=== PATIENT | female | born 1980 | race Caucasian/White ===

== ENCOUNTER 2023-12-25 16:42 | Emergency (ER) | payer SELFPAY ==
[2023-12-25 17:15] VITALS: BP 119/73; PULSE 78; TEMP 36.6; O2SAT 100; BMI 30.2
--- NOTE | 2023-12-25 19:19 | ED_ITS ---
HPI HPI - General Adult General Chief complaint: Skin/Abscess/Foreign Body Stated complaint: Laceration Time Seen by Provider: 12/25/23 19:15 Source: patient Mode of arrival: walk-in Limitations: no limitations History of Present Illness HPI narrative: Patient is a 43-year-old female who presents to the emergency department for a superficial laceration to the distal tip of the toe. She states she caught her toe on a rika table at home prior to arrival, she states it was about 2 hours ago bleeding is well-controlled, but she was concerned because her tetanus is not up-to-date and the table was near cat feces and she is concerned for infection. Patient has no concern for . Related Data Allergies Allergy/AdvReac Type Severity Reaction Status Date / Time No Known Drug Allergies Allergy Verified 12/25/23 17:14 Opioid HPI Opioid Management Most Recent Opioid Data: No Data to Display Review of Systems ROS Constitutional Denies: fever or chills Ears, nose, mouth, and throat Denies: throat pain or nasal congestion Respiratory Denies: shortness of breath Gastrointestinal Denies: nausea or vomiting Integumentary/Breast Denies: rash Neurological Denies: numbness in extremities or weakness in extremities Hematologic/Lymphatic Denies: easy bruising or easy bleeding PFSH PFSH Social History Little interest or pleasure in doing things: not at all Feeling down, depressed, or hopeless: not at all Exam Narrative Exam Narrative: Gen.: Awake, alert, in no distress Head: Normocephalic, atraumatic ENT: Moist mucous membranes Respiratory: No respiratory distress Extremities: Moves extremities equally, superficial 0.5 cm laceration to the distal tip of the right great toe, no toenail involvement. No deep laceration noted, no active bleeding. Psych: Normal mood and affect Neuro: No focal neuro deficit Skin: Warm, dry, intact Constitutional Vital Signs, click to edit/add: Last Vital Signs Temp 97.8 F 12/25/23 17:15 Pulse 78 12/25/23 17:15 Resp 16 12/25/23 17:15 BP 119/73 12/25/23 17:15 Pulse Ox 100 12/25/23 17:15 Course Vital Signs Vital signs: Vital Signs Temperature 97.8 F 12/25/23 17:15 Pulse Rate 78 12/25/23 17:15 Respiratory Rate 16 12/25/23 17:15 Blood Pressure 119/73 12/25/23 17:15 Pulse Oximetry 100 12/25/23 17:15 Temperature 97.8 F 12/25/23 17:15 Pulse Rate 78 12/25/23 17:15 Respiratory Rate 16 12/25/23 17:15 Blood Pressure 119/73 12/25/23 17:15 Pulse Oximetry 100 12/25/23 17:15 Medical Decision Making MDM Narrative Medical decision making narrative: Laceration is superficial, no indication for suture repair. The area was cleansed, dressed with bacitracin and a dressing, tetanus updated. Patient encouraged to use soap and water to the area with regular wound care and antibiotic ointment. Follow-up with PCP and return to the ER if symptoms change or worsen. SUPERVISED APC VISIT, PHYSICIAN ATTESTATION: Based on the medical record the care appears appropriate. ? Medical Records Medical records reviewed: Yes I reviewed the patient's medical records Discharge Plan Discharge Chief Complaint: Skin/Abscess/Foreign Body Clinical Impression: Superficial laceration of toe Patient Disposition: Home, Self-Care Time of Disposition Decision: 19:18 Condition: Good Print Language: Macedonian Instructions: Laceration (ED) Referrals: YASMINE HERNANDEZ [Primary Care Provider] - 1 week
[2023-12-25] MEDS: ADACEL DIPH,PERTUSS(ACELL),TET VAC/PF 0.5 ML ADULT SYRINGE IM (19:33)
[2023-12-25] MEDS: BACITRACIN 0.9 GM PACKET 1 PACKET TOPICAL (19:33)
== END 2023-12-25 19:53 | disposition home or self-care (01) ==
PROVIDERS: Emergency Provider Emergency Medicine
DX: S91.111A Laceration without foreign body of right great toe without damage to nail, initial encounter (principal); Z23 Encounter for immunization; W22.03XA Walked into furniture, initial encounter
CPT/HCPCS: 90471; 90715; 99284

== ENCOUNTER 2025-01-15 19:11 | Emergency (ER) | payer SELFPAY ==
--- OUTSIDE RECORDS SUMMARY | 2025-01-15 19:18 | XMS_ITS | CCD ---
Author Organization [facility] Care Team Providers Care Systems Qa Analyst Name Role Phone RubenMarely michelle Unavailable REQUEST, NONE LISTED Primary Care Unavaila IAN Alexander Admitting Unavailable SUNNY, IAN Attending Unavailable IAN CORREA Consulting Unavailable KERRY VALLES Consulting Unavailable TERESITA, DR AGUSTIN Admitting Unavailable KARASIK, DR AGUSTIN Attending Unavailable REQUEST, NONE LISTED Primary Care Unavaila ble TERESITA, DR AGUSTIN Consulting Unavailable JESUS ALBERTO, DR LEX Mccullough Consulting Unavailable Mary, Yasmine Unavailable ISACC ANDERSON Attending Unavailable MARY, YASMINE N Referring Unavailable MARY, YASMINE N Primary Care Unavailable ISACC ANDERSON Attending Unavailable MARY, YASMINE N Referring Unavailable MARY, YASMINE N Primary Care Unavailable Unavailable Primary Care Provider Unavailabl e Mary DO, Yasmine N Primary Care Provider Mary DO, Yasmine N Primary Care Provider [phone] LEONEL TALBOT Referring Unavailable LEONEL TALBOT Attending Unavailable Mary DO, Yasmine N Primary Care Provider ISACC ANDERSON Attending Unavailable MARY, YASMINE N Referring Unavailable MARY, YASMINE N Primary Care Unavailable ISACC ANDERSON Referring Unavailable MARY, YASMINE N Primary Care Unavailable HARI KULKARNI Attending Un available MARY, YASMINE N Referring Unavailable MARY, YASMINE N Primary Care Unavailable HARI KULKARNI Referring Un available MARY, YASMINE N Primary Care Unavailable Mary DO, Yasmine N Primary Care Provider [phone] Julieth Hughes APRN Attending Provider [phone] Franki Cuadra APRN Attending Provider Medications Current Medications Medication Drug Class(es) Dates Sig (Normalized) Sig (Original) estradiol 1 mg oral tablet (14 sources) Estrogen Start: 11-30-2024 End: 02-28-2025 take 1 tablet by mouth once daily estradiol (Estrace) 1 MG tablet Indications: Hot flashes Take 1 tablet (1 mg) by mouth Daily 15 tablet 1 11/30/2024 02/28/2025 Active Start: 10-28-2023 End: 11-30-2024 take 0.5 tablet by mouth in the morning estradioL (ESTRACE) 1 mg tablet Take 0.5 tablets (0.5 mg total) by mouth in the morning. 10/28/2023 Active levothyroxine sodium 0.15 mg oral capsule (20 sources) l-Thyroxine Start: 01-06-2025 take 1 capsule by mouth once daily Levothyroxine 150 mcg capsule Active 150 MCG PO Daily January 06, 2025 12:00am Complies with drug therapy Start: 05-19-2024 take 1 capsule by mo ut in the morning TIROSINT 150 mcg capsule Indications: Acquired hypothyroidism Take 1 capsule (150 mcg total) by mouth in the morning. 90 capsule 3 05/19/2024 Active Start: 08-14-2022 End: 05-19-2024 take 1 capsule by mouth in the morning TIROSINT 175 mcg capsule Indications: Acquired hypothyroidism Take 175 mcg by mouth in the morning. 90 capsule 3 11/14/2023 Active take 1 capsule by mo uth once daily in the morning Tirosint 175 MCG 1 capsule in the morning on an empty stomach Orally Once a day Active Tirosint Active methylPREDNISolone 4 mg oral tablet (2 sources) Corticosteroid Start: 01-07-2025 Methylprednisolone 4 mg tablets,dose pack Active 0 PO per package directions January 07, 2025 12:00am PO PER PKG DIR for 6 days Complies with drug therapy naproxen sodium 220 mg oral tablet (1 source) Nonsteroidal Anti-inflammatory Drug take 2 tablets by mouth every twelve hours at mealtime as needed Aleve 220 MG 2 tablet with food or milk as needed Orally every 12 hrs Active 24 hr phentermine 7.5 mg / topiramate 46 mg extended release oral capsule (20 sources) Sympathomimetic Amine Anorectic Start: 01-06-2025 take 1 capsule by mouth once daily Phentermine-Topiramat e (Qsymia) 7.5-46 mg capsule, ER multiphase 24 hr Active 1 CAP PO Daily January 06, 2025 12:00am Complies with drug therapy Start: 01-01-2025 take 1 capsule by mo uth once daily in the morning phentermine-topiramate (QSYMIA) 15-92 mg capsule, ER multiphase 24 hr Indications: Abnormal weight gain TAKE 1 CAPSULE BY MOUTH EVERY MORNING 30 capsule 2 01/01/2025 Active Start: 12-12-2022 End: 01-01-2025 take 1 capsule by mouth every twenty-four hours in the morning phentermine-topiramate (QSYMIA) 15-92 mg capsule, ER multiphase 24 hr Indications: Abnormal weight gain Take 1 capsule by mouth in the morning. 30 capsule 5 05/19/2024 01/01/2025 Discontinued predniSONE 10 mg oral tablet (1 source) Start: 10-20-2022 prednisone 10 mg 5 tablets for 2 days, 4 tablets x2 days, then 3 x2 days, 2 x2 days, 1 x2 days Orally as directed for 10 days Oct, Active valACYclovir 1000 mg oral tablet (1 source) Herpesvirus Nucleoside Analog DNA Polymerase Inhibitor, Herpes Simplex Virus Nucleoside Analog DNA Polymerase Inhibitor, Herpes Zoster Virus Nucleoside Analog DNA Polymerase Inhibitor take 1 tablet by mouth every twelve hours Valtrex 1 GM 1 tablet Orally twice a day for 7 days Active vit B complex 100 no.2/herbs (VITAMIN B COMPLEX 100 2-HERBS ORAL) (8 sources) vit B complex 10 0 no.2/herbs (VITAMIN B COMPLEX 100 2-HERBS ORAL) Active vit B complex 10 0 no.2/herbs (VITAMIN B COMPLEX 100 2-HERBS ORAL) vit c-ascorbate Ca-ascorb so d (VITAMIN C) 500 mg/15 mL liquid (8 sources) vit c-ascorbate Ca-ascorb sod (VITAMIN C) 500 mg/15 mL liquid Active vit c-ascorbate Ca-ascorb sod (VITAMIN C) 500 mg/15 mL liquid Completed/Discontinued Medications Medication Drug Class(es) Dates Sig (Normalized) Sig (Original) triamcinolone acetonide 40 mg/ml injectable suspension (3 sources) Corticosteroid Start: 10-20-2022 Kenalog-40 Oct, 60 mg Problems Active Problems Problem Classification Problem Date Documented Da te Episodic/Chronic Abdominal pain (2 sources) Left lower quadrant pain; Translations: [Left lower quadrant pain] Episodic Cardiac dysrhythmias (4 sources) Palpitations; Translations: [Palpitations] 01-06-2025 Episodic Chronic obstructive pulmonary disease and bronchiectasis (1 source) Bronchitis; Translations: [Bronchitis, not specified as acute or chronic] 01-07-2025 Episodic Complications of surgical procedures or medical care (12 sources) Postprocedural hypothyroidism; Translations: [Postoperative hypothyroidism] Onset: 06-21-2022 05-12-2024 Chronic Other connective tissue disease (5 sources) H/O: musculoskeletal disease; Translations: [Personal history of other diseases of the musculoskeletal system and connective tissue] 01-06-2025 Episodic Other connective tissue disease (1 source) Personal history of other diseases of the musculoskeletal system and connective tissue Episodic Other gastrointestinal disorders (2 sources) Constipation alternates with diarrhea; Translations: [Other specified symptoms and signs involving the digestive system and abdomen] Episodic Other lower respiratory disease (4 sources) Dyspnea; Translations: [Shortness of breath] 01-06-2025 Episodic Other lower respiratory disease (4 sources) Cough; Translations: [Cough] 01-06-2025 Episodic Other nutritional; endocrine; and metabolic disorders (2 sources) Body mass index 30+ - obesity; Translations: [Body mass index (BMI) 30.0-30.9, adult] Chronic Other nutritional; endocrine; and metabolic disorders (14 sources) Abnormal weight gain; Translations: [Abnormal weight gain] Onset: 06-21-2022 05-19-2024 Episodic Other upper respiratory infections (2 sources) Acute upper respiratory infection, unspecified; Translations: [Acute pharyngitis, unspecified] Onset: 03-20-2022 Episodic Residual codes; unclassified (1 source) Acquired absence of both cervix and uterus; Translations: [ACQUIRED ABSENCE BOTH CERVIX AND UTERUS] Onset: 03-20-2022 Episodic Residual codes; unclassified (2 sources) Flushing; Translations: [Flushing] 11-30-2024 Episodic Screening and history of mental health and substance abuse codes (1 source) Personal history of nicotine dependence; Translations: [PERSONAL HISTORY OF NICOTINE DEPEND] Onset: 03-20-2022 Episodic Thyroid disorders (20 sources) Hypothyroidism, unspecified; Translations: [Acquired hypothyroidism] Onset: 03-20-2022 Chronic Unclassified (3 sources) COUGH, UNSPECIFIED; Translations: [COUGH, UNSPECIFIED] Onset: 03-20-2022 Unclassified (1 source) CONTACT W/AND (SUSP) EXPOS COVID-19; Translations: [CONTACT W/AND (SUSP) EXPOS COVID-19] Onset: 03-20-2022 Unclassified (2 sources) Thyroid Problem Onset: 05-16-2023 Viral infection (1 source) Zoster without complications Episodic Past or Other Problems Problem Classification Problem Date Documented Da te Episodic/Chronic Other nutritional; endocrine; and metabolic disorders (2 sources) Abnormal weight gain; Translations: [Abnormal weight gain] Onset: 06-21-2022 Episodic Other screening for suspected conditions (not mental disorders or infectious disease) (4 sources) Encounter for screening mammogram for malignant neoplasm of breast; Translations: [ENC SCR MAMMO MALIG NEOPLASM BREAST] Onset: 06-19-2021 Episodic Residual codes; unclassified (1 source) Family history of malignant neoplasm of digestive organs; Translations: [FAM HX MALIG NEOPLASM DIGESTIV ORGN] Onset: 06-20-2021 Episodic Unclassified (1 source) COUGH, UNSPECIFIED; Translations: [COUGH, UNSPECIFIED] Onset: 03-16-2022 Results Test Name Value Interpretation Reference Range Facility THYROID PROFILE INCLUDES TSH FT4on 12-01-2024 Free T4 [Mass/Vol] 0.70 ng/dL Normal 0.61-1.60 [facility] Comment on above: Performed By: #### T HYR #### [facility] ([facility]) [address] [place] [address] VIR TSH 4.80 uIU/mL High 0.49-4.67 [facility] Comment on above: Performed By: #### T HYR #### [facility] ([facility]) [address] [place] [address] VIR Thyroid profile includes TSH FT4on 12-01-2024 Free T4 [Mass/Vol] 0.7 ng/dL 0.61 - 1. 60 ng/dL [facility] Interpretation and review of laboratory results Abnormal [facility] TSH Qn 4.8 m[IU]/L High [facility] BI MAMMOGRAM SCREENING TOMOS YNTHESIS BILATERALon 10-29-2024 BI MAMMOGRAM SCREENING TOMOSYNTHESIS BILATERAL This is a summary report. The complete report is available in the patient's medical record. If you cannot access the medical record, please contact the sending organization for a detailed fax or copy. Examination: BI MAMMOGRAM SCREENING TOMOSYNTHESIS BILATERAL Clinical History: screening Technique: Screening digital mammography study of both breasts was performed with 2-D and 3-D tomosynthesis imaging. Study was compared to the prior exam dated 07/10/2023. Findings: There is no evidence of interval dominant spiculated mass, grouped microcalcifications, or skin thickening which would be suggestive of malignancy. A single benign-appearing calcification is seen on the left. IMPRESSION: Impression: No specific evidence of malignancy seen in either breast. BIRADS 2 - Benign Findings DENSITY: There are scattered areas of fibroglandular density. FOLLOW-UP: Routine Screening Mammogram ELECTRONICALLY SIGNED BY: Zachary Mayfield M.D. Normal Not Available THYROID PROFILEon 05-19-2024 Free T4 [Mass/Vol] 1.30 ng/dL Normal 0.61-1.60 [facility] Comment on above: Performed By: #### T HYR #### [facility] ([id number]) [address] [place] [address] TSH 0.09 uIU/mL Low 0.49-4.67 [facility] Comment on above: Performed By: #### T HYR #### [facility] ([id number]) [address] [place] [address] Free T3 [Mass/Vol]on 024 [facility] T3, freeon 05-16-2023 Free T3 [Mass/Vol] 3.28 pg/mL 2.50 - 3. 90 pg/mL [facility] Thyroid profile includes TSH FT4on 05-16-2023 Free T4 [Mass/Vol] 1.12 ng/dL 0.61 - 1. 60 ng/dL [facility] Interpretation and review of laboratory results Abnormal [facility] TSH Qn 0.40 m[IU]/L Low [facility] Quick Strepon 04-22-2023 S. pyogenes Org specific cx Ql (Throat) Negative [facility] Other Quick Strep [facility] Other Covid-19 PCR ([facility])on SARS-CoV-2 (COVID-19) RNA MEKHI+probe Ql (Unsp spec) Not detected Normal NOT DETECTED [facility] Comment on above: Result Comment: When diagnostic testing is negative, the possibility of a false negative should be considered in the context of a patient's recent exposures and the presence of clinical signs and symptoms consistent with SARS-CoV-2. This test is not yet approved or cleared by the [place] FDA. When there are no FDA-approved or cleared tests available, and other criteria are met, FDA can make tests available under an emergency access mechanism called an Emergency Use Authorization (EUA). The EUA for this test is supported by the Matching Machine Operator of Health and Human Service's declaration that circumstances exist to justify the emergency use of in vitro diagnostics for the detection and/or diagnosis of the virus that causes COVID-19. This EUA will remain in effect for the duration of the COVID-19 declaration justifying emergency of IVDs, unless it is terminated or revoked by the FDA (after which the test may no longer be used). Performed By: #### C VDTBH #### [facility] [address] [place] [address] Dr. Owen Sanchez INFLUENZA A AND B AGon 03-16 [facility] SEE BELOW Normal [facility] Comment on above: Result Comment: Nega tive for Flu A protein angiten. Infection due to Flu A cannot be ruled out. Flu A angiten in the sample may be below the detection limit of the test. Performed By: #### I NFLUAB #### [facility] [address] [place] [address] Dr. [facility] SEE BELOW Normal [facility] Comment on above: Result Comment: Nega tive for Flu B protein antigen. Infection due to Flu B cannot be ruled out. Flu B antigen in the sample may be below the detection limit of the test. Performed By: #### I NFLUAB #### [facility] [address] [address] [address] Owen Sanchez INFLUENZA A AG Negative Normal NEGATIVE SEE COMMENT [facility] Comment on above: Performed By: #### I NFLUAB #### [facility] [address] [address] [address] Owen Sanchez INFLUENZA B AG Negative Normal NEGATIVE SEE COMMENT [facility] Comment on above: Performed By: #### I NFLUAB #### [facility] [address] [address] [address] Owen Sanchez INTERNAL CONTROLS Within Normal Limits Normal Wi thin Normal Limits [facility] Comment on above: Performed By: #### I NFLUAB #### [facility] [address] [place] [address] Dr. Owen Sanchez XR CHEST 2 Von 03-16-2022 XR CHEST 2 V EXAM: XR CHEST 2 V 03/16/2022 12:24 AM EST [facility]001 CLINICAL STATEMENT: COUGH COMPARISON: 04/05/2012 TECHNIQUE: Single AP radiograph of the chest is submitted. FINDINGS: There is no acute airspace disease. The cardiac silhouette is normal. The costophrenic recesses are sharp. No pneumothorax. The bony elements are unremarkable. IMPRESSION: No acute cardiopulmonary process. FOLLOW-UP: Follow-up as clinically indicated. Electronically authenticated by: KERRY SAID Date: 2022-03-16 01:02 Normal [facility] MAMM SCREEN 3D KELTON CADon 06-19-2021 MG MAMM SCREEN 3D KELTON CAD Patient: BROOKE ALTMAN Exam Date: 06/19/2021 : 1980 Gender:F Ordering : DR NIKOLE MANCILLA . Admission #: [id number] Family : [facility] Order #: [id number] CLICK HERE TO VIEW EXAM RADIOLOGY REPORT PROCEDURE: MAMMOGRAM SCREENING 3D BILATERAL CAD COMPARISON: None. INDICATIONS: Screening mammography Calculator Name NCI Breast Cancer Risk Assessment Tool 5 Year Breast Cancer Risk 0.60% Lifetime Breast Cancer Risk 9.80% Personal Breast Cancer No Personal Ovarian Cancer No Treatments None Family Cancers Aunt-paternal with colon cancer at age 47. LOCATION: [facility] BREAST COMPOSITION: Heterogeneously dense,which may obscure small masses. FINDINGS: DIAGNOSTIC CATEGORY 1--NEGATIVE. Scattered benign-appearing lymph nodes are present. RIGHT BREAST: No significant suspicious finding. LEFT BREAST: No significant suspicious finding. RECOMMENDATIONS: ROUTINE MAMMOGRAM AND CLINICAL EVALUATION IN 12 MONTHS. PLEASE NOTE: A NORMAL MAMMOGRAM DOES NOT EXCLUDE THE POSSIBILITY OF BREAST CANCER. A CLINICALLY SUSPICIOUS PALPABLE LUMP SHOULD BE BIOPSIED. Dictated by: Lex Morrison MD on 06/19/2021 at 07:54 Approved by: Lex Morrison MD on 06/19/2021 at 07:56 Normal [facility] FT4on 04-28-2020 Free T4 [Mass/Vol] 2.07 ng/dL High 0.64-1.79 [facility] Comment on above: Performed By: #### 4 685, 4500 #### [facility] Unless Otherwise Noted [address] [place] [address] / COLA #4724/CLIA # [id number] TSHon 04-28-2020 TSH Qn 0.04 uIU/ml Low 0.47-4.68 [facility] Comment on above: Performed By: #### 4 520, 4500 #### [facility] Unless Otherwise Noted [address] [place] [id number] / COLA #4724/CLIA # [id number] FT4on 02-25-2020 Free T4 [Mass/Vol] 0.95 ng/dL Normal 0.64-1.79 [facility] Comment on above: Performed By: #### 4 500, 4520 #### [facility] Unless Otherwise Noted [address] [place] [address] / COLA #4724/CLIA # [id number] TSHon 02-25-2020 TSH Qn 14.50 uIU/ml High 0.47-4.68 [facility] Comment on above: Performed By: #### 0 385, 1771 #### [facility] Unless Otherwise Noted [address] [place] [address] / KELSIE #4724/CLIA # [id number] Vital Signs Date Time Vital Sign Value Performing Clinician Facility 01-07-2025 09:20-0400 Body height 154.94 cm Yasmine Ferguson DO Work Phone: [facility] 01-07-2025 09:20-0400 Body mass index (BMI) [Ratio] 33 kg/m2 Yasmine Ferguson DO Work Phone: [facility] 01-07-2025 09:20-0400 Body temperature 97.5 [degF] Yasmine Mary DO Work Phone: [facility] 01-07-2025 09:20-0400 Body weight 79.37 kg Yasmine Ferguson DO Work Phone: [facility] 01-07-2025 09:20-0400 Diastolic blood pressure 92 mm[Hg] Yasmine Ferguson DO Work Phone: [facility] 01-07-2025 09:20-0400 Heart rate 80 /min Yasmine Mary DO Work Phone: [facility] 01-07-2025 09:20-0400 Respiratory rate 18 /min Yasmine Ferguson DO Work Phone: [facility] 01-07-2025 09:20-0400 SaO2% (BldA) [Mass fraction] 98 % Yasmine Ferguson DO Work Phone: [facility] 01-07-2025 09:20-0400 Systolic blood pressure 140 mm[Hg] Yasmine Ferguson DO Work Phone: [facility] 01-06-2025 17:22-0400 Body height 154.94 cm Yasmine Ferguson DO Work Phone: [facility] 01-06-2025 17:22-0400 Body mass index (BMI) [Ratio] 32.5 kg/m2 Yasmine Ferguson DO Work Phone: [facility] 01-06-2025 17:22-0400 Body temperature 98.9 [degF] Yasmine Ferguson DO Work Phone: [facility] 01-06-2025 17:22-0400 Body weight 78.01 kg Yasmine Ferguson DO Work Phone: [facility] 01-06-2025 17:22-0400 Diastolic blood pressure 69 mm[Hg] Yasmine Ferguson DO Work Phone: [facility] 01-06-2025 17:22-0400 Heart rate 89 /min Yasmine Ferguson DO Work Phone: [facility] 01-06-2025 17:22-0400 Respiratory rate 18 /min Yasmine Ferguson DO Work Phone: [facility] 01-06-2025 17:22-0400 SaO2% (BldA) [Mass fraction] 99 % Yasmine Ferguson DO Work Phone: [facility] 01-06-2025 17:22-0400 Systolic blood pressure 119 mm[Hg] Yasmine Ferguson DO Work Phone: [facility] 12-01-2024 15:03-0400 Body height 152.4 cm [facility]ari Mejia MD [facility] 12-01-2024 15:03-0400 Body mass index (BMI) [Ratio] 33.61 kg/m2 Hari Mejia MD Work Phone: [facility] 12-01-2024 15:03-0400 Body weight 78.06 kg Hari Mejia MD Work Phone: [facility] 12-01-2024 15:03-0400 Diastolic blood pressure 81 mm[Hg] Hari Mejia MD Work Phone: [facility] 12-01-2024 15:03-0400 Heart rate 79 /min Hari Mejia MD Work Phone: [facility] 12-01-2024 15:03-0400 Systolic blood pressure 115 mm[Hg] Hari Mejia MD Work Phone: [facility] 11-30-2024 14:07-0400 Body mass index (BMI) [Ratio] 33.07 kg/m2 Leonel Talbot CNM Work Phone: [facility] 11-30-2024 14:07-0400 Body weight 79.38 kg Leonel Talbot CNM Work Phone: [facility] 11-30-2024 14:07-0400 Diastolic blood pressure 80 mm[Hg] Leonel Rickettso CNM Work Phone: [facility] 11-30-2024 14:07-0400 Systolic blood pressure 120 mm[Hg] Leonel Rickettso CNM Work Phone: [facility] 05-19-2024 10:06-0500 Body height 152.4 cm Isacc Anderson PUBLICATION DESIGNER-FIXED INTEREST DEALER Work Phone: [facility] 05-19-2024 10:06-0500 Body mass index (BMI) [Ratio] 33.01 kg/m2 Isacc Anderson PUBLICATION DESIGNER-FIXED INTEREST DEALER Work Phone: [facility] 05-19-2024 10:06-0500 Body weight 76.66 kg Isacc Anderson PUBLICATION DESIGNER-FIXED INTEREST DEALER Work Phone: [facility] 05-19-2024 10:06-0500 Diastolic blood pressure 79 mm[Hg] Isacc Anderson PUBLICATION DESIGNER-FIXED INTEREST DEALER Work Phone: [facility] 05-19-2024 10:06-0500 Heart rate 84 /min Isacc Anderson PUBLICATION DESIGNER-FIXED INTEREST DEALER Work Phone: [facility] [employer] [facility] 05-19-2024 10:06-0500 Respiratory rate 16 /min Isacc Anderson PUBLICATION DESIGNER-FIXED INTEREST DEALER Work Phone: [facility] [employer] [facility] 05-19-2024 10:06-0500 Systolic blood pressure 131 mm[Hg] Isacc Anderson PUBLICATION DESIGNER-FIXED INTEREST DEALER Work Phone: [facility] 11-14-2023 10:05-0400 Body mass index (BMI) [Ratio] 33.3 kg/m2 Isacc Anderson PUBLICATION DESIGNER-FIXED INTEREST DEALER Work Phone: [facility] 11-14-2023 10:05-0400 Body weight 77.34 kg Isacc Anderson PUBLICATION DESIGNER-FIXED INTEREST DEALER Work Phone: [facility] [employer] [facility] 11-14-2023 10:05-0400 Diastolic blood pressure 71 mm[Hg] Isacc Anderson PUBLICATION DESIGNER-FIXED INTEREST DEALER Work Phone: [facility] [employer] [facility] 11-14-2023 10:05-0400 Heart rate 83 /min Isacc Anderson PUBLICATION DESIGNER-FIXED INTEREST DEALER Work Phone: [facility] [employer] [facility] 11-14-2023 10:05-0400 Systolic blood pressure 107 mm[Hg] Isacc Anderson PUBLICATION DESIGNER-FIXED INTEREST DEALER Work Phone: [facility] [employer] [facility] 05-16-2023 08:09-0500 Body mass index (BMI) [Ratio] 33.79 kg/m2 Isacc Anderson PUBLICATION DESIGNER-FIXED INTEREST DEALER Work Phone: [facility] [employer] [facility] 05-16-2023 08:09-0500 Body weight 78.47 kg Isacc Anderson PUBLICATION DESIGNER-FIXED INTEREST DEALER Work Phone: [facility] 05-16-2023 08:09-0500 Diastolic blood pressure 73 mm[Hg] Isacc Anderson PUBLICATION DESIGNER-FIXED INTEREST DEALER Work Phone: [facility] 05-16-2023 08:09-0500 Heart rate 82 /min Isacc Anderson PUBLICATION DESIGNER-FIXED INTEREST DEALER Work Phone: [employer] 05-16-2023 08:09-0500 Systolic blood pressure 114 mm[Hg] Isacc Anderson PUBLICATION DESIGNER-FIXED INTEREST DEALER Work Phone: [employer] 04-22-2023 08:30-0500 Body height 154.94 cm Yasmine Ferguson Other [facility] Other 04-22-2023 08:30-0500 Body mass index (BMI) [Ratio] 30.23 kg/m2 Yasmine Ferguson Other [facility] Other 04-22-2023 08:30-0500 Body temperature 98.3 [degF] Yasmine Ferguson Other [facility] Other 04-22-2023 08:30-0500 Body weight 72.58 kg Yasmine Ferguson Other [facility] Other 04-22-2023 08:30-0500 Diastolic blood pressure 68 mm[Hg] Yasmine Ferguson Other [facility] Other 04-22-2023 08:30-0500 Respiratory rate 16 /min Yasmine Ferguson Other [facility] Other 04-22-2023 08:30-0500 SaO2% (BldA) [Mass fraction] 99 % Yasmine Ferguson Other [facility] Other 04-22-2023 08:30-0500 Systolic blood pressure 108 mm[Hg] Yasmine Ferguson Other [facility] Other 02-07-2023 13:00-0400 Body height 154.94 cm Yasmine Ferguson Other [facility] Other 02-07-2023 13:00-0400 Body mass index (BMI) [Ratio] 31.55 kg/m2 Yasmine Ferguson Other [facility] Other 02-07-2023 13:00-0400 Body temperature 98 [degF] Yasmine Ferguson Other [facility] Other 02-07-2023 13:00-0400 Body weight 75.75 kg Yasmine Mary Other [facility] Other 02-07-2023 13:00-0400 Diastolic blood pressure 68 mm[Hg] Yasmine Ferguson Other [facility] Other 02-07-2023 13:00-0400 SaO2% (BldA) [Mass fraction] 99 % Yasmine Mary Other [facility] Other 02-07-2023 13:00-0400 Systolic blood pressure 106 mm[Hg] Yasmine Ferguson Other [facility] Other 01-22-2022 12:20-0400 Body height 154.94 cm Marely Ruben Other [facility] Other 01-22-2022 12:20-0400 Body mass index (BMI) [Ratio] 30.61 kg/m2 Marely Ruben Other [facility] Other 01-22-2022 12:20-0400 Body temperature 96.2 [degF] Marely Miranda Other [facility] Other 01-22-2022 12:20-0400 Body weight 73.48 kg Marely Miranda Other [facility] Other 01-22-2022 12:20-0400 Diastolic blood pressure 67 mm[Hg] Marely Miranda Other [facility] Other 01-22-2022 12:20-0400 Respiratory rate 16 /min Marely Miranda Other [facility] Other 01-22-2022 12:20-0400 Systolic blood pressure 115 mm[Hg] Marely Miranda Other [facility] Other Encounters Encounter Date Encounter Type Care Provider Facility Start: 01-07-2025 End: 01-07-2025 ambulatory Yasmine Ferguson DO Work Phone: [facility] Work Phone: Start: 01-07-2025 End: 01-07-2025 Patient encounter procedure Franki Cuadra PUBLICATION DESIGNER -[facility] [place] Work Phone: Start: 01-06-2025 End: 01-06-2025 ambulatory Yasmine Ferguson DO Work Phone: [facility] Work Phone: Start: 01-06-2025 End: 01-06-2025 Patient encounter procedure Julieth Borrero PUBLICATION DESIGNER -[facility] [place] Work Phone: Start: 01-01-2025 End: 01-01-2025 Nimco Anderson PUBLICATION DESIGNER-[facility] Work Phone: [facility] Adult Endocrinology, A Department of [facility] Comment on above: Abnormal weight gain Start: 12-01-2024 End: 12-01-2024 ambulatory HARI MEJIA [facility] Start: 12-01-2024 End: 12-01-2024 Office outpatient visit 25 minutes Hari Mejia MD Work Phone: [facility], A Department of [facility] Comment on above: Acquired hypothyroid ism (Primary Dx) Start: 11-30-2024 End: 11-30-2024 Bamboo flowsheet Leonel L Floro CNM Work Phone: [facility] Start: 11-30-2024 End: 11-30-2024 Bamboo flowsheet Leonel L Floro CNM Work Phone: [facility] Start: 11-30-2024 End: 11-30-2024 Gynecological examination normal Leonel L Floro CNM Work Phone: [facility] Start: 11-30-2024 End: 11-30-2024 Periodic preventive med est patient 40-64yrs Leonel L Floro CNM Work Phone: [facility] Comment on above: Normal gynecologic e xamination; Hot flashes Start: 11-30-2024 End: 11-30-2024 ambulatory LEONEL L FLORO Not Available Start: 10-29-2024 End: 10-29-2024 ambulatory LEONEL L FLORO Not Available Start: 10-26-2024 End: 10-26-2024 Telephone encounter Leonel L Liliamo CNM Work Phone: [facility] Start: 05-19-2024 End: 05-19-2024 Office outpatient visit 15 minutes Isacc Anderson PUBLICATION DESIGNER-[employer] Work Phone: [facility] Adult [facility], A Department of [facility] Comment on above: Postsurgical hypothy roidism (Primary Dx); Abnormal weight gain Start: 05-19-2024 End: 05-19-2024 Orders Only Isacc Anderson PUBLICATION DESIGNER-[employer] Work Phone: [facility] Adult [facility], A Department of [facility] Comment on above: Acquired hypothyroid ism Start: 03-27-2024 End: 03-27-2024 Telephone encounter Leonel Talbot CNM Work Phone: [facility] Start: 12-12-2023 End: 12-12-2023 Refill Isacc Anderson PUBLICATION DESIGNER-[employer] INTER[employer] DEAL[employer] Work Phone: [facility] Comment on above: Abnormal weight gain Start: 11-14-2023 End: 11-14-2023 Office outpatient visit 25 minutes Isacc Anderson PUBLICATION DESIGNER-[employer] Work Phone: [facility] Comment on above: Postsurgical hypothy roidism (Primary Dx); Abnormal weight gain Start: 11-14-2023 End: 11-14-2023 ambulatory ISACC Martinez [facility] Comment on above: Acquired hypothyroid ism Start: 05-16-2023 End: 05-16-2023 ambulatory ISCAC ANDERSON [facility] Start: 05-16-2023 End: 05-16-2023 Office outpatient visit 15 minutes Isacc Anderson PUBLICATION DESIGNER-[employer] INTEREST DEALER Work Phone: [facility] Comment on above: Acquired hypothyroid ism (Primary Dx); Abnormal weight gain Start: 04-22-2023 End: 04-22-2023 ambulatory Yasmine Ferguson Other [facility] Other Start: 04-22-2023 Office outpatient vi sit 15 minutes Yasmine Ferguson [facility] Start: 02-07-2023 End: 02-07-2023 ambulatory Yasmine Ferguson Other [facility] Other Start: 02-07-2023 Encounter for genera l adult medical examination without abnormal findings Yasmine Ferguson [facility] [place] Start: 02-07-2023 Periodic preventive med est patient 40-64yrs Yasmine Ferguson [facility] [place] Start: 01-24-2023 End: 01-24-2023 ambulatory Yasmine Ferguson Other [facility] Other Start: 01-24-2023 Telephone encounter Yasmine Mary [facility] Start: 03-16-2022 End: 03-16-2022 ambulatory NONE LISTED REQUEST Facility:[facility] Start: 01-22-2022 End: 01-22-2022 ambulatory Marely Miranda Other [facility] Other Start: 01-22-2022 Office outpatient vi sit 25 minutes Marely Miranda [facility] [place] Start: 06-19-2021 End: 06-20-[address] NIKOLE MANCILLA Facility: Plan of Treatment Date Care Activity Detail Author Start: 12-24-2033 DTaP,Tdap and Td Vaccines (2 - Td or Tdap) DTaP,Tdap and Td Vaccines (2 - Td or Tdap) [facility] Start: 12-01-2025 Adult BMI Screening Adult BMI Screening [facility] Start: 12-01-2025 Tobacco Screening Tobacco Screening [facility] Start: 06-03-2025 End: 06-03-2025 Patient encounter procedure 06/03/2025 1:15 PM EST Office Visit [facility], A Department of [facility] [address] [facility] [address] [place] [address] Hari Kulkarni MD [address] [place] [address] [facility], A Department of [facility] Start: 05-20-2025 End: 12-01-2025 Thyroid profile includes TSH FT4 Thyroid profile includes TSH FT4 Lab Routine Acquired hypothyroidism Expected: 05/20/2025 (Approximate), Expires: 12/01/2025 [facility] Work Phone: Comment on above: Expected: 05/20/2025 (Approximate), Expi res: 12/01/2025 Start: 05-19-2025 Adult BMI Screening Adult BMI Screening [facility] Start: 05-19-2025 Tobacco Screening Tobacco Screening [facility] Start: 12-07-2024 Influenza vaccination Influenza Vaccine [facility] Start: 11-30-2024 End: 11-30-2024 Patient encounter procedure 11/30/2024 2:00 PM EDT Office Visit [facility] [address] [place] [id number] Leonel Talbot CNM [address] [place], [place] [id number] [facility] Start: 11-17-2024 End: 11-17-2024 Patient encounter procedure 11/17/2024 10:00 AM EDT Office Visit [facility], A Department of [facility] [address] [place] [phone] Hari Kulkarni MD [address] [place] [address] [facility], A Department of [facility] Start: 11-13-2024 Adult BMI Screening Adult BMI Screening [facility] Start: 11-13-2024 Tobacco Screening Tobacco Screening [facility] Start: 07-07-2024 End: 05-19-2025 Thyroid profile includes TSH FT4 Thyroid profile includes TSH FT4 Lab Routine Acquired hypothyroidism Expected: 07/07/2024 (Approximate), Expires: 05/19/2025 [facility] Work Phone: Comment on above: Expected: 07/07/2024 (Approximate), Expi res: 05/19/2025 Start: 05-19-2024 End: 05-19-2024 Patient encounter procedure 05/19/2024 10:00 AM EST Office Visit [facility] [address] [place] [phone] Isacc Anderson, PUBLICATION DESIGNER-FIXED INTEREST DEALER [address] [place] [address] [facility] Start: 05-16-2024 Adult BMI Screening Adult BMI Screening [facility] Start: 05-16-2024 Tobacco Screening Tobacco Screening [facility] Start: 05-09-2024 End: 11-13-2024 Thyroid profile includes TSH FT4 Thyroid profile includes TSH FT4 Lab Routine Postsurgical hypothyroidism Expected: 05/09/2024 (Approximate), Expires: 11/13/2024 [facility] Comment on above: Expected: 05/09/2024 (Approximate), Expi res: 11/13/2024 Start: 12-08-2023 Influenza vaccination Influenza Vaccine [facility] Start: 11-14-2023 End: 11-14-2023 Patient encounter procedure 11/14/2023 10:00 AM EDT Office Visit [facility] [address] [facility] [address] [place] [phone] Isacc Anderson, PUBLICATION DESIGNER-FIXED INTEREST DEALER [address] [facility] [address] [place] [address] [facility] Start: 11-07-2023 End: 05-16-2024 Thyroid profile includes TSH FT4 Thyroid profile includes TSH FT4 Lab Routine Acquired hypothyroidism Expected: 11/07/2023 (Approximate), Expires: 05/16/2024 [facility] Comment on above: Expected: 11/07/2023 (Approximate), Expi res: 05/16/2024 Start: 11-07-2023 End: 05-16-2024 Triiodothyronine (T3) Free [Mass/volume] in Serum or Plasma T3, free Lab Routine Acquired hypothyroidism Expected: 11/07/2023 (Approximate), Expires: 05/16/2024 [facility] Work Phone: Comment on above: Expected: 11/07/2023 (Approximate), Expi res: 05/16/2024 Start: 12-07-2022 Influenza vaccination Influenza Vaccine [facility] Start: 07-11-2000 Screening for malignant neoplasm of cervix Pap Smear [facility] Start: 07-11-1998 DTaP,Tdap and Td Vaccines (1 - Tdap) DTaP,Tdap and Td Vaccines (1 - Tdap) [employer] Start: 07-11-1997 Adult BMI Follow Up Plan Adult BMI Follow Up Plan [employer] Start: 1991 [facility] 2000 panel - Serum or Plasma [facility] End: 05-19-2025 Thyroid profile includes TSH FT4 Thyroid profile includes TSH FT4 Lab Routine Postsurgical hypothyroidism 1 Occurrences starting 05/19/2024 until 05/19/2025 [employer] Work Phone: Comment on above: 1 Occurrences starting 05/19/2024 until 05/19/2025 Thyroid profile incl udes TSH FT4 Thyroid profile includes TSH FT4 Lab Routine Postsurgical hypothyroidism 05/19/2024 10:36 AM EST [employer] End: 11-13-2024 Thyroid profile includes TSH FT4 Thyroid profile includes TSH FT4 Lab Routine Postsurgical hypothyroidism 1 Occurrences starting 11/14/2023 until 11/13/2024 [employer] Work Phone: Comment on above: 1 Occurrences starting 11/14/2023 until 11/13/2024 Thyroid profile incl udes TSH FT4 Thyroid profile includes TSH FT4 Lab Routine Postsurgical hypothyroidism 11/14/2023 10:32 AM EDT [employer] [facility] Payers Date Payer Category Payer Unknown [id number] 1980 Unknown [id number] 1979 Unknown [id number] 1979 Unknown [id number] 1979 Unknown [id number] 1960 Self-pay [id number] Social History Date Type Detail Facility Start: 05-19-2020 End: 06-11-2023 Sex Assigned At [facility] [employer] Other Start: 02-08-2023 End: 11-14-2023 Tobacco smoking status NHIS Ex-smoker [facility] End: 04-08-2012 History of tobacco use Current smoker [facility] End: 04-08-2012 History of tobacco use Cigarette Smoker [facility] Start: 06-11-2023 End: 12-01-2024 Alcoholic beverage intake Ex-drinker (finding) [facility] Start: 05-19-2020 End: 06-11-2023 History of Social function [facility] Start: 02-08-2023 Alcohol Comment caffeine: 2-3 cups per day [facility] Start: 1980 Sex assigned at Not on file P [facility] Start: 04-17-2022 End: 11-14-2023 Tobacco use and exposure Smokeless tobacco non-user [facility] Childcare Unknown [facility] Start: 04-17-2022 Alcohol Comment on nicholas [facility] Start: 11-11-2014 Sex Female (finding) [facility] Start: 01-06-2025 Tobacco smoking stat us MOIS Never smoked tobacco (finding) [facility] Start: 1980 Sex Assigned At Female F [facility] Clinical Notes 01-22-2022 to 01-06-2025 Note Date & Type Note Facility 01-06-2025 Evaluation note Diagnosis Onset Date Resolution Cough acute January 06, 025 5:15pm Palpitations acute January 06, 2025 5:15pm Shortness of breath acute Octob er 2024 5:15pm Bronchitis noneactive January 07 025 9:12am [facility] Work Phone: 1(748) 637-541010-01-2025 Evaluation note* Diagnosis Onset Date Resolution Status Admit Date Cough acute January 06 025 5:15pm Palpitations acute January 06, 2025 5:15pm Shortness of breath acute Octob er 2024 5:15pm Acquired hypothyroidism acute O ctober 2024 9:12am Diego thyroiditis acute Oct janeth 2024 9:12am [facility] Work Phone: 1(490) 549-474308-26-2025 Evaluation + Plan note* Assessment & Plan Note - Hari Mejia MD - 12/01/2024 6:00 PM EDTAssociated Problem(s): Abnormal weight gain Patient doing well clinically on Qsymia. . We discussed about considering down the road a GLP 1 agonist. We discussed about the potential long-term side effects of taking the medication and she verbalized understanding. Advised to watch her diet carefully and exercise on a regular basis [facility]08-26-2025 Miscellaneous Notes* Assessment & Plan Note - Hari Mejia MD - 12/01/2024 6:00 PM EDTAssociated Problem(s): Abnormal weight gain Patient doing well clinically on Qsymia. . We discussed about considering down the road a GLP 1 agonist. We discussed about the potential long-term side effects of taking the medication and she verbalized understanding. Advised to watch her diet carefully and exercise on a regular basis * Assessment & Plan Note - Hari Mejia MD - 12/01/2024 5:59 PM EDTAssociated Problem(s): Acquired hypothyroidism Patient has primary hypothyroidism over replaced based on most recent blood work.. We will obtain thyroid function studies Today and prior to her next appointment to adjust the dose of Tirosint if needed and patient will be notified about the results [facility] Evaluation + Plan note* Assessment & Plan Note - Hari Mejia MD - 12/01/2024 5:59 PM EDTAssociated Problem(s): Acquired hypothyroidism Patient has primary hypothyroidism over replaced based on most recent blood work.. We will obtain thyroid function studies Today and prior to her next appointment to adjust the dose of Tirosint if needed and patient will be notified about the results [facility]08-26-2025 History of Present illness Narrative* Hari Mejia MD - 12/01/2024 2:45 PM EDT Hypothyroidism Follow up Brooke Altman is a 44 y.o. 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 Patient had a total thyroidectomy in February 2015 for a right thyroid nodule which biopsy showed atypical cells. She was on levothyroxine for 4 years, switched to [place] thyroid that she took until surgery, later switched to Tirosint. We had tried multiple other options for medication replacement, but could not regulate levels until Tirosint was started. She wanted a full endocrine work-up done. Celiac work-up, Acth, cortisol, Fsh/LH all were within normal limits. She is currently taking Tirosint 150 mcg daily. Most recent blood work from May 2024 showed a TSH of 0.09. Patient was extremely frustrated with weight, despite normal thyroid function. Completed 3-monthsof Phentermine. Started on Qsymia and started feeling much better since then. Dose increased to themaximum dose and reached a plateau so medication was discontinued. Medication later resumed currently taking 15-92 mg. Stable weight. Past Medical History: Diagnosis Date Diego's thyroiditis Current Outpatient Medications: estradioL (ESTRACE) 1 mg tablet, Take 0.5 tablets (0.5 mg total) by mouth in the morning., Disp: , Rfl: phentermine-topiramate (QSYMIA) 15-92 mg capsule, ER multiphase 24 hr, Take 1 capsule by mouth in the morning., Disp: 30 capsule, Rfl: 5 TIROSINT 150 mcg capsule, Take 1 capsule (150 mcg total) by mouth in the morning., Disp: 90 capsule, Rfl: 3 vit B complex 100 no.2/herbs (VITAMIN B COMPLEX 100 2-HERBS ORAL), , Disp: , Rfl: vit c-ascorbate Ca-ascorb sod (VITAMIN C) 500 mg/15 mL liquid, , Disp: , Rfl: Review of Systems Constitutional: Negative. HENT: Negative. Eyes: Negative. Respiratory: Negative. Cardiovascular: Negative for chest pain, palpitations and leg swelling. Endocrine: Negative for heat intolerance, polydipsia, polyphagia and polyuria. Genitourinary: Negative. Skin: Negative. Allergic/Immunologic: Negative. Hematological: Negative. Psychiatric/Behavioral: Negative. Tobacco Use: Medium Risk (12/01/2024) Patient History Smoking Tobacco Use: Former Smokeless Tobacco Use: Never Passive Exposure: Not on file Past Surgical History: Procedure Laterality Date SECTION THYROIDECTOMY US GUIDED BIOPSY THYROID FINE NEEDLE No Known Allergies Physical examination Vitals: 12/01/24 1503 BP: 115/81 Pulse: 79 Weight: 78.1 kg (172 lb 1.6 oz) Height: 152.4 cm (5') Physical Exam Constitutional: Appearance: Normal appearance. HENT: Head: Normocephalic. Eyes: Extraocular Movements: Extraocular movements intact. Pupils: Pupils are equal, round, and reactive to light. Comments: No exophalmos Neck: Thyroid: No thyroid mass, thyromegaly or thyroid tenderness. Vascular: No carotid bruit. Cardiovascular: Rate and Rhythm: Normal rate and regular rhythm. Pulses: Dorsalis pedis pulses are 3+ on the right side and 3+ on the left side. Pulmonary: Effort: No respiratory distress. Breath sounds: Normal breath sounds. No wheezing. Abdominal: General: Bowel sounds are normal. Palpations: Abdomen is soft. Tenderness: There is no abdominal tenderness. Musculoskeletal: General: No swelling or tenderness. Cervical back: No rigidity or tenderness. Right lower leg: No edema. Left lower leg: No edema. Right foot: No deformity, Charcot foot or foot drop. Left foot: No deformity, Charcot foot or foot drop. Feet: Right foot: Protective Sensation: 5 sites tested. 5 sites sensed. Left foot: Protective Sensation: 5 sites tested. 5 sites sensed. Lymphadenopathy: Cervical: No cervical adenopathy. Skin: General: Skin is warm and dry. Neurological: General: No focal deficit present. Mental Status: She is alert and oriented to person, place, and time. Cranial Nerves: No cranial nerve deficit. Sensory: No sensory deficit. Motor: No weakness. Gait: Gait normal. Lab Results Component Value Date TSH 0.09 (L) 05/19/2024 TSH 3.58 11/14/2023 TSH 0.40 (L) 05/16/2023 ASSESSMENT: 1. Acquired hypothyroidism - Thyroid profile includes TSH FT4; Future - Thyroid profile includes TSH FT4; Future Acquired hypothyroidism Patient has primary hypothyroidism over replaced based on most recent blood work.. We will obtain thyroid function studies Today and prior to her next appointment to adjust the dose of Tirosint if needed and patient will be notified about the results Abnormal weight gain Patient doing well clinically on Qsymia. . We discussed about considering down the road a GLP 1 agonist. We discussed about the potential long-term side effects of taking the medication and she verbalized understanding. Advised to watch her diet carefully and exercise on a regular basis [facility] History of Present illness Narrative* Leonel Talbot, KAVON - 11/30/2024 2:00 PM EDT YEARLY HPI: This is a established patient. Chief Complaint Patient presents with Gynecologic Exam Here for annual exam. OB History Para Term AB Living 2 2 SAB IAB Ectopic Multiple Live Births 2 # Outcome Date GA Lbr Arnie/2nd Weight Sex Type Anes PTL Lv 2 1 ABSTRACT CLERK complaints: no Changes in healthsince last visit: no Surgeries or hospitalizations since last visit: no control method: none Menses: hysterectomy Last pap: Other: History: Past Medical History: Diagnosis Date Acute sinusitis Bronchitis Gastroenteritis Diego's disease History of medical problems systemic yeast Hypothyroidism Mitral valve disease Thyroid nodule URI (upper respiratory infection) Past Surgical History: Procedure Laterality Date SECTION, LOW TRANSVERSE 2001, 2005 EXPLORATORY LAPAROTOMY 01/2016 HYSTERECTOMY 2017 IR FINE NEEDLE ASPIRATION THYROID 02/01/2015 TOTAL THYROIDECTOMY 02/15/2015 TUBAL LIGATION 06/2005 Family History Problem Relation Name Age of Onset Diabetes Mother Other (Thyroid issues) Father Hypertension Maternal Grandmother Stroke Maternal Grandmother Diabetes Maternal Grandfather Emphysema Paternal Grandmother Heart disease Paternal Grandfather Colon cancer Other Aunt stage 4 Allergies: No Known Allergies Medications: Current Outpatient Medications on File Prior to Visit Medication Sig Dispense Refill estradiol (Estrace) 1 MG tablet TAKE A HALF TABLET BY MOUTH DAILY 15 tablet 0 Phentermine-Topiramate (Qsymia) 15-92 MG capsule sustained-release 24 hr Take 1 capsule by mouth inthe morning. Tirosint 175 MCG capsule Take 175 mcg by mouth in the morning. No current facility-administered medications on file prior to visit. ROS: Review of Systems All other systems reviewed and are negative. There were no vitals filed for this visit. Physical exam: Physical Exam Vitals reviewed. Constitutional: Appearance: Normal appearance. HENT: Head: Normocephalic. Right Ear: Tympanic membrane normal. Left Ear: Tympanic membrane normal. Mouth/Throat: Mouth: Mucous membranes are moist. Eyes: Pupils: Pupils are equal, round, and reactive to light. Cardiovascular: Rate and Rhythm: Normal rate and regular rhythm. Pulses: Normal pulses. Heart sounds: Normal heart sounds. Pulmonary: Effort: Pulmonary effort is normal. Breath sounds: Normal breath sounds. Chest: Breasts: Right: Normal. Left: Normal. Abdominal: General: Abdomen is flat. Bowel sounds are normal. Palpations: Abdomen is soft. Tenderness: There is no abdominal tenderness. Genitourinary: General: Normal vulva. Exam position: Lithotomy position. Vagina: Normal. No tenderness. Cervix: Normal. No cervical motion tenderness. Uterus: Normal. Adnexa: Right adnexa normal and left adnexa normal. Musculoskeletal: General: Normal range of motion. Cervical back: Normal range of motion and neck supple. Skin: General: Skin is warm and dry. Neurological: General: No focal deficit present. Mental Status: She is alert and oriented to person, place, and time. Psychiatric: Mood and Affect: Mood normal. Assessment and Plan: 1. Annual exam 2. SBE discussed: Yes 3. Diet and exercise discussed: Yes 4. Wt control discussed: No 5. Safe sex discussed: No There are no diagnoses linked to this encounter. Patient states she thinks menopausal symptoms are stronger. She was currently taking the 1 mg and breaking it in half and taking 0.5mg I did suggest she not break it and take the 1 mg and increase strength and see if that helps. PVU and states that is what she will do. She also has horrible pain with ovulation and on her left side only but not the right side. She said the pain is pretty bad at times that she is down on the couch with heating pad. She can feel the ovulation pain every time on the right. I want to get an US and we discussed getting it while she is having the pain. She will callwhen she's having the pain and we will scan her then. Dr Mancilla performed her hysterectomy and states that he told her she has a lot of adhesions and with surgery they can come back. She is interested in a possible ablation but worried about adhesions and she I just wait out my time for menopauseand the ovulation will go away. No follow-ups on file. There are no Patient Instructions on file for this visit. Betina Shah MA, 11/30/2024 2:09 PM documented in this encounterSaint John's [id number] Telephone encounter Note* Telephone Encounter - Vinnei Melchor - 10/26/2024 9:37 AM EDT Brooke would like yearly Mammogram order put in [facility] ty [facility] [id number] Miscellaneous Notes* Telephone Encounter - Vinnie Melchor - 10/26/2024 9:37 AM EDT Brooke would like yearly Mammogram order put in plz, ty documented in this [facility]02-11-2025 History of Present illness Narrative* Isacc Anderson APRN-FIXED INTEREST DEALER - 05/19/2024 10:00 AM EST Hypothyroidism Follow up Brooke Altman is a 43 y.o. 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 Patient had a total thyroidectomy in February 2015 for a right thyroid nodule which biopsy showed atypical cells. She was on levothyroxine for 4 years, switched to [place] thyroid that she took until surgery, later switched to Tirosint. We had tried multiple other options for medication replacement, but could not regulate levels until Tirosint was started. She wanted a full endocrine work-up done. Celiac work-up, Acth, cortisol, Fsh/LH all were within normal limits. She is currently taking Tirosint 175 mcg daily. Most recent blood work from November 2023 showed a TSH of 3.58. Patient was extremely frustrated with weight, despite normal thyroid function. Completed 3-months of Phentermine. Started on Qsymia and started feeling much better since then. Dose increased to the maximum dose and reach a plateau so medication was discontinued. She began to regain weight so she restarted this. Weight has been stable. 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- hot flashes Excessive sweating: denies Heat intolerance: denies Cold intolerance: denies Dry skin: denies Tremor: denies Excess anxiety: denies Tachycardia: denies Palpitations: denies Constipation: denies Excessive bowel movements: denies Fatigue: denies Hair loss: denies Eye pressure: denies Dry/gritty eyes: denies Anterior neck swelling/pressure: denies Difficulty swallowing: denies Past Medical History: Diagnosis Date Diego's thyroiditis Current Outpatient Medications: estradioL (ESTRACE) 1 mg tablet, Take 0.5 tablets (0.5 mg total) by mouth in the morning., Disp: , Rfl: TIROSINT 175 mcg capsule, Take 175 mcg by mouth in the morning., Disp: 90 capsule, Rfl: 3 vit B complex 100 no.2/herbs (VITAMIN B COMPLEX 100 2-HERBS ORAL), , Disp: , Rfl: vit c-ascorbate Ca-ascorb sod (VITAMIN C) 500 mg/15 mL liquid, , Disp: , Rfl: phentermine-topiramate (QSYMIA) 15-92 mg capsule, ER multiphase 24 hr, Take 1 capsule by mouth in the morning., Disp: 30 capsule, Rfl: 5 Review of Systems Constitutional: Negative. HENT: Negative. Eyes: Negative. Respiratory: Negative. Cardiovascular: Negative for chest pain, palpitations and leg swelling. Endocrine: Negative for heat intolerance, polydipsia, polyphagia and polyuria. Genitourinary: Negative. Skin: Negative. Allergic/Immunologic: Negative. Hematological: Negative. Psychiatric/Behavioral: Negative. Tobacco Use: Medium Risk (05/19/2024) Patient History Smoking Tobacco Use: Former Smokeless Tobacco Use: Never Passive Exposure: Not on file Past Surgical History: Procedure Laterality Date SECTION THYROIDECTOMY US GUIDED BIOPSY THYROID FINE NEEDLE No Known Allergies Physical examination Vitals: 05/19/24 1006 BP: 131/79 Pulse: 84 Resp: 16 Weight: 76.7 kg (169 lb) Height: 152.4 cm (5') Physical Exam Constitutional: Appearance: Normal appearance. HENT: Head: Normocephalic. Eyes: Extraocular Movements: Extraocular movements intact. Pupils: Pupils are equal, round, and reactive to light. Comments: No exophalmos Neck: Vascular: No carotid bruit. Comments: Thyroid surgically absent Cardiovascular: Rate and Rhythm: Normal rate and regular rhythm. Pulmonary: Effort: No respiratory distress. Breath sounds: Normal breath sounds. No wheezing. Abdominal: General: Bowel sounds are normal. Palpations: Abdomen is soft. Tenderness: There is no abdominal tenderness. Musculoskeletal: General: No swelling or tenderness. Cervical back: No rigidity or tenderness. Right lower leg: No edema. Left lower leg: No edema. Lymphadenopathy: Cervical: No cervical adenopathy. Skin: General: Skin is warm and dry. Neurological: General: No focal deficit present. Mental Status: She is alert and oriented to person, place, and time. Cranial Nerves: No cranial nerve deficit. Sensory: No sensory deficit. Motor: No weakness. Gait: Gait normal. TSH Date Value Ref Range Status 11/14/2023 3.58 0.49 - 4.67 uIU/mL Final 05/16/2023 0.40 (L) 0.49 - 4.67 uIU/mL Final 01/30/2023 0.03 (L) 0.49 - 4.67 uIU/mL Final T4, free Date Value Ref Range Status 11/14/2023 0.99 0.61 - 1.60 ng/dL Final 05/16/2023 1.12 0.61 - 1.60 ng/dL Final 01/30/2023 1.50 0.61 - 1.60 ng/dL Final T3, free Date Value Ref Range Status 05/16/2023 3.28 2.50 - 3.90 pg/mL Final 03/14/2017 2.90 2.50 - 3.90 pg/mL Final 12/27/2015 2.89 2.50 - 3.90 pg/mL Final ASSESSMENT: 1. Postsurgical hypothyroidism - Thyroid profile includes TSH FT4; Future 2. Abnormal weight gain - phentermine-topiramate (QSYMIA) 15-92 mg capsule, ER multiphase 24 hr; Take 1 capsule by mouth inthe morning. Dispense: 30 capsule; Refill: 5 Acquired hypothyroidism Patient has primary hypothyroidism. We will obtain thyroid function studies today and prior to her next appointment to adjust the dose if Tirosint if needed Abnormal weight gain Patient notes feeling well since restarting Qsymia. We discussed about the potential long-term sideeffects of taking the medication and she verbalized understanding. We will continue the medication for 3 months and re-evaluate at her next visit MAURA Ramirez 05/19/24 1023 [facility] Telephone encounter Note* Telephone Encounter - Jazmine Fox - 03/27/2024 9:53 AM EST Patient left this [facility], my name is Brooke Altman. I am a patient of Shayy Pena and I was wondering if her or 1 of her nurses could give me a call on an issue that I am having. I am new a patient. I have not dealt with this issue with her before, but it is kind of An ongoing issue that I have had. My number is [phone]. Thank you, alka. [facility] [id number] Miscellaneous Notes* Telephone Encounter - Jazmine Fox - 03/27/2024 9:53 AM EST Patient left this [facility], my name is Brooke Altman. I am a patient of Shayy Pena and I was wondering if her or 1 of her nurses could give me a call on an issue that I am having. I am new a patient. I have not dealt with this issue with her before, but it is kind of An ongoing issue that I have had. My number is [phone]. Thank you, alka. documented in this encounterSaint John's [id number] Miscellaneous Notes* Telephone Encounter - Marley Florentino - 12/12/2023 10:06 AM EDT Ok to sign and send documented in this encounterS[facility]09-[facility] Telephone encounter Note* Telephone Encounter - Marley Florentino - 12/12/2023 10:06 AM EDT Ok to sign and send [facility] History of Present illness Narrative* Isacc Anderson APRN-SHERRI - 11/14/2023 10:00 AM EDT Hypothyroidism Follow up Brooke Altman is a 43 y.o. 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 Patient had a total thyroidectomy in February 2015 for a right thyroid nodule which biopsy showed atypical cells. She was on levothyroxine for 4 years, switched to [place] thyroid that she took until surgery, later switched to Tirosint. We had tried multiple other options for medication replacement, but could not regulate levels until Tirosint was started. She wanted a full endocrine work-up done. Celiac work-up, Acth, cortisol, Fsh/LH all were within normal limits. She is currently taking Tirosint 175 mcg daily. Most recent blood work from May 2023 showed a TSH of 0.4. Patient was extremely frustrated with weight, despite normal thyroid function. Completed 3-months of Phentermine. Started on Qsymia and started feeling much better since then. Dose increased to the maximum dose and reach a plateau so medication was discontinued. She began to regain weight so she restarted this at last visit. Weight has been stable. 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- hot flashes Excessive sweating: denies Heat intolerance: denies Cold intolerance: denies Dry skin: denies Tremor: denies Excess anxiety: denies Tachycardia: denies Palpitations: denies Constipation: denies Excessive bowel movements: denies Fatigue: denies Hair loss: denies Eye pressure: denies Dry/gritty eyes: denies Anterior neck swelling/pressure: denies Difficulty swallowing: denies Past Medical History: Diagnosis Date Diego's thyroiditis Current Outpatient Medications: estradioL (ESTRACE) 1 mg tablet, Take 0.5 tablets (0.5 mg total) by mouth in the morning., Disp: , Rfl: TIROSINT 175 mcg capsule, Take 175 mcg by mouth in the morning., Disp: 90 capsule, Rfl: 3 vit B complex 100 no.2/herbs (VITAMIN B COMPLEX 100 2-HERBS ORAL), , Disp: , Rfl: vit c-ascorbate Ca-ascorb sod (VITAMIN C) 500 mg/15 mL liquid, , Disp: , Rfl: phentermine-topiramate (QSYMIA) 15-92 mg capsule, ER multiphase 24 hr, Take 1 capsule by mouth in the morning., Disp: 30 capsule, Rfl: 5 Review of Systems Constitutional: Negative. HENT: Negative. Eyes: Negative. Respiratory: Negative. Cardiovascular: Negative for chest pain, palpitations and leg swelling. Endocrine: Negative for heat intolerance, polydipsia, polyphagia and polyuria. Genitourinary: Negative. Skin: Negative. Allergic/Immunologic: Negative. Hematological: Negative. Psychiatric/Behavioral: Negative. Tobacco Use: Medium Risk (11/14/2023) Patient History Smoking Tobacco Use: Former Smokeless Tobacco Use: Never Passive Exposure: Not on file Past Surgical History: Procedure Laterality Date SECTION THYROIDECTOMY US GUIDED BIOPSY THYROID FINE NEEDLE No Known Allergies Physical examination Vitals: 11/14/23 1005 BP: 107/71 Pulse: 83 Weight: 77.3 kg (170 lb 8 oz) Physical Exam Constitutional: Appearance: Normal appearance. HENT: Head: Normocephalic. Eyes: Extraocular Movements: Extraocular movements intact. Pupils: Pupils are equal, round, and reactive to light. Comments: No exophalmos Neck: Vascular: No carotid bruit. Comments: Thyroid surgically absent Cardiovascular: Rate and Rhythm: Normal rate and regular rhythm. Pulmonary: Effort: No respiratory distress. Breath sounds: Normal breath sounds. No wheezing. Abdominal: General: Bowel sounds are normal. Palpations: Abdomen is soft. Tenderness: There is no abdominal tenderness. Musculoskeletal: General: No swelling or tenderness. Cervical back: No rigidity or tenderness. Right lower leg: No edema. Left lower leg: No edema. Lymphadenopathy: Cervical: No cervical adenopathy. Skin: General: Skin is warm and dry. Neurological: General: No focal deficit present. Mental Status: She is alert and oriented to person, place, and time. Cranial Nerves: No cranial nerve deficit. Sensory: No sensory deficit. Motor: No weakness. Gait: Gait normal. TSH Date Value Ref Range Status 05/16/2023 0.40 (L) 0.49 - 4.67 uIU/mL Final 01/30/2023 0.03 (L) 0.49 - 4.67 uIU/mL Final 11/07/2022 0.35 (L) 0.49 - 4.67 uIU/mL Final T4, free Date Value Ref Range Status 05/16/2023 1.12 0.61 - 1.60 ng/dL Final 01/30/2023 1.50 0.61 - 1.60 ng/dL Final 11/07/2022 1.06 0.61 - 1.60 ng/dL Final T3, free Date Value Ref Range Status 05/16/2023 3.28 2.50 - 3.90 pg/mL Final 03/14/2017 2.90 2.50 - 3.90 pg/mL Final 12/27/2015 2.89 2.50 - 3.90 pg/mL Final ASSESSMENT: 1. Postsurgical hypothyroidism - Thyroid profile includes TSH FT4; Future - Thyroid profile includes TSH FT4; Future 2. Abnormal weight gain - phentermine-topiramate (QSYMIA) 15-92 mg capsule, ER multiphase 24 hr; Take 1 capsule by mouth inthe morning. Dispense: 30 capsule; Refill: 5 Acquired hypothyroidism Patient has primary hypothyroidism. Last TSH slightly suppressed, close to normal. We will obtain thyroid function studies today and prior to her next appointment to adjust the dose if Tirosint if needed Abnormal weight gain Patient notes feeling well since restarting Qsymia. We discussed about the potential long-term sideeffects of taking the medication and she verbalized understanding. We will continue the medication for 3 months and re-evaluate at her next visit MAURA Ramirez 11/14/23 1016 documented in this encounterS[facility]02-[facility] History of Present illness Narrative* Isacc Martinez Patricio, PUBLICATION DESIGNER-FIXED INTEREST DEALER - 05/16/2023 8:00 AM EST Hypothyroidism Follow up Brooke Altman is a 42 y.o. 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 Patient had a total thyroidectomy in February 2015 for a right thyroid nodule which biopsy showed atypical cells. She was on levothyroxine for 4 years, switched to [place] thyroid that she took until surgery, later switched to Tirosint. We had tried multiple other options for medication replacement, but could not regulate levels until Tirosint was started. She wanted a full endocrine work-up done. Celiac work-up, Acth, cortisol, Fsh/LH all were within normal limits. She is currently taking Tirosint 175 mcg daily. Most recent blood work from January 2023 showed a TSH of 0.03. Patient was extremely frustrated with weight, despite normal thyroid function. Completed 3-months of Phentermine. Started on Qsymia and started feeling much better since then. Dose increased to the maximum dose and reach a plateau so medication was discontinued. Restarted this at last visit for 1 month, but then stopped and regained weight. Past Medical History: Diagnosis Date Diego's thyroiditis Current Outpatient Medications: levothyroxine sodium 175 mcg capsule, Take 175 mcg by mouth in the morning., Disp: 30 capsule, Rfl:11 TIROSINT 175 mcg capsule, Take 175 mcg by mouth in the morning., Disp: 90 capsule, Rfl: 3 vit B complex 100 no.2/herbs (VITAMIN B COMPLEX 100 2-HERBS ORAL), , Disp: , Rfl: vit c-ascorbate Ca-ascorb sod (VITAMIN C) 500 mg/15 mL liquid, , Disp: , Rfl: phentermine-topiramate (QSYMIA) 15-92 mg capsule, ER multiphase 24 hr, Take 1 capsule by mouth in the morning., Disp: 30 capsule, Rfl: 5 Review of Systems Constitutional: Negative. HENT: Negative. Eyes: Negative. Respiratory: Negative. Cardiovascular: Negative for chest pain, palpitations and leg swelling. Endocrine: Negative for heat intolerance, polydipsia, polyphagia and polyuria. Genitourinary: Negative. Skin: Negative. Allergic/Immunologic: Negative. Hematological: Negative. Psychiatric/Behavioral: Negative. Tobacco Use: Medium Risk (05/16/2023) Patient History Smoking Tobacco Use: Former Smokeless Tobacco Use: Never Passive Exposure: Not on file Past Surgical History: Procedure Laterality Date SECTION THYROIDECTOMY US GUIDED BIOPSY THYROID FINE NEEDLE No Known Allergies Physical examination Vitals: 05/16/23 0809 BP: 114/73 Pulse: 82 Weight: 78.5 kg (173 lb) Physical Exam Constitutional: Appearance: Normal appearance. HENT: Head: Normocephalic. Eyes: Extraocular Movements: Extraocular movements intact. Pupils: Pupils are equal, round, and reactive to light. Comments: No exophalmos Neck: Vascular: No carotid bruit. Comments: Thyroid surgically absent Cardiovascular: Rate and Rhythm: Normal rate and regular rhythm. Pulmonary: Effort: No respiratory distress. Breath sounds: Normal breath sounds. No wheezing. Abdominal: General: Bowel sounds are normal. Palpations: Abdomen is soft. Tenderness: There is no abdominal tenderness. Musculoskeletal: General: No swelling or tenderness. Cervical back: No rigidity or tenderness. Right lower leg: No edema. Left lower leg: No edema. Lymphadenopathy: Cervical: No cervical adenopathy. Skin: General: Skin is warm and dry. Neurological: General: No focal deficit present. Mental Status: She is alert and oriented to person, place, and time. Cranial Nerves: No cranial nerve deficit. Sensory: No sensory deficit. Motor: No weakness. Gait: Gait normal. TSH Date Value Ref Range Status 01/30/2023 0.03 (L) 0.49 - 4.67 uIU/mL Final 11/07/2022 0.35 (L) 0.49 - 4.67 uIU/mL Final 08/13/2022 9.30 (H) 0.49 - 4.67 uIU/mL Final T4, free Date Value Ref Range Status 01/30/2023 1.50 0.61 - 1.60 ng/dL Final 11/07/2022 1.06 0.61 - 1.60 ng/dL Final 08/13/2022 0.84 0.61 - 1.60 ng/dL Final T3, free Date Value Ref Range Status 03/14/2017 2.90 2.50 - 3.90 pg/mL Final 12/27/2015 2.89 2.50 - 3.90 pg/mL Final ASSESSMENT: 1. Acquired hypothyroidism - Thyroid profile includes TSH FT4; Future - T3, free; Future - T3, free; Future - Thyroid profile includes TSH FT4; Future 2. Abnormal weight gain - phentermine-topiramate (QSYMIA) 15-92 mg capsule, ER multiphase 24 hr; Take 1 capsule by mouth inthe morning. Dispense: 30 capsule; Refill: 5 Acquired hypothyroidism Patient has primary hypothyroidism. Last TSH slightly suppressed, close to normal. We will obtain thyroid function studies today and prior to her next appointment to adjust the dose if Tirosint if needed Abnormal weight gain Patient notes feeling well since stopping Qsymia and has been gaining weight again. We discussed about the potential long-term side effects of taking the medication and she verbalized understanding. We will resume the medication for 3 months and re-evaluate at her next visit MAURA Ramirez 05/16/23820 MAURA Ramirez 05/16/23830 documented in this encounterS[facility]02-08-2024 Miscellaneous Notes* Addendum Note - MAURA Ramirez - 05/16/2023 8:00 AM EST Addended by: ISACC ANDERSON on: 05/16/2023 11:34 AM Modules accepted: Orders documented in this encounterS[facility]02-08-2024 Note* Addendum Note - MAURA Ramirez - 05/16/2023 8:00 AM ESTAddended by: ISACC ANDERSON on: 05/16/2023 11:34 AM Modules accepted: Orders [facility]01-[facility] Evaluation note* Encounter Date Diagnosis Assessment Notes Treatment Notes Treatment Clinical Notes Apr, Sore throat (ICD-10 - J02.9) Rapid strep negative in the office and patient was informed that she appears to have a viral URI. No evidence of bacterial infection. She is to call if she feels her symptoms are changing or worsening in any way. [facility] Other 11-02-2023 Evaluation note* Encounter Date Diagnosis Assessment Notes Treatment Notes Treatment Clinical Notes Feb, Acquired hypothyroidism (ICD-10 - E03.9) Feb, Well adult exam (ICD-10 - Z00.00) 42-year-old female who only has hypothyroidism and recurrent low back pain from herniated disc as her chronic medical problems. She sees endocrinology for her thyroid issue and is well controlled on her current medication. She states she is not having a current flareup of her back pain but has had to have steroids and chiropractic adjustment in the past. She states currently she is doing well. No concerning findings on physical exam. 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 She is to follow-up in 1 year or sooner if an acute issue arises. Feb, History of herniated intervertebral disc (ICD-10 - Z87.39) [facility] Other 10-17-2022 Evaluation note* Encounter Date Diagnosis Assessment Notes Treatment Notes Treatment Clinical Notes Jan, Herpes zoster without complication (ICD-10 - B02.9) Take medication as directed. COmplete all doses. [facility] Other Evaluation noteNo InformationNort Bread Other Evaluation note* Diagnosis Acquired hypothyroidism- Primary Unspecified hypothyroidism Abnormal weight gain Postsurgical hypothyroidism- Primary Abnormal weight gain [facility]* Diagnosis Acquired hypothyroidism- Primary Unspecified hypothyroidism Abnormal weight gain Acquired hypothyroidism Unspecified hypothyroidism documented in this encounter [facility]* Diagnosis Acquired hypothyroidism- Primary Unspecified hypothyroidism Abnormal weight gain documented in this encounter [facility]* Diagnosis Postsurgical hypothyroidism- Primary Abnormal weight gain documented in this encounter [facility]* Diagnosis Acquired hypothyroidism Unspecified hypothyroidism documented in this [facility]* Diagnosis Abnormal weight gain documented in this encounter [facility]* Diagnosis Normal gynecologic examination Hot flashes documented in this encounter [facility]* Diagnosis Acquired hypothyroidism- Primary Unspecified hypothyroidism Abnormal weight gain Acquired hypothyroidism- Primary Unspecified hypothyroidism [facility] Diagnosis Acquired hypothyroidism- Primary Unspecified hypothyroidism Abnormal weight gain Acquired hypothyroidism- Primary Unspecified hypothyroidism Abnormal weight gain [facility] this [facility] noteNo assessment information available [facility] Work Phone: History general Narrative - Reported* Type Description Date Surgical History C-SECTIONS, 2001, 2005 Surgical History THYROIDECTOMY [facility] Other History general Narrative - Reported* Type Description Date Medical History LOW BACK PAIN Surgical History C-SECTIONS, 2001, 2005 Surgical History THYROIDECTOMY Surgical History HYSTERCTOMY Hospitalization History see above [facility] Other Hisdzqw general Narrative - Reported* Type Description Date Medical History LOW BACK PAIN Medical History Hypothyroidism Surgical History C-SECTIONS, 2001, 2005 Surgical History THYROIDECTOMY Surgical History HYSTERCTOMY Hospitalization History see above [facility] Other InstructionsNot on filedocumented in this encounter [facility] filedocumented in this [facility]Not on filedocumented in this encounter [facility]Not on filedocumented in this encounter [facility]Not on filedocumented in this encounter [facility]InstructionsNot on filedocumented in this encounter [facility] SystemInstructionsNot on filedocumented in this encounter [facility]InstructionsNot on filedocumented in this encounter [facility] SystemReason for referral (narrative)No reason for referral information available[facility] Phone: Summary Purpose Family History Relationship Condition Age at Onset Recorded Date/T karla mother Transient ischemic attack Unknown Advance Directives Advance Directive Response Recorded Date/ Time Advance Directives No January 06, 2025 5:12pm Reason for Referral Specialty Diagnoses / Procedures Referred By Contchinedu t Referred To Contact Diagnoses Abnormal weight gain Isacc Anderson, PUBLICATION DESIGNER-FIXED INTEREST DEALER [address] [facility] [address] [place] [address] Referral ID Status Reason Start Date Expiration Date V isits Requested Visits Authorized [id number] Pending Review 1 1 Chief Complaint and Reason for Visit Chief Complaint Admit Date Cough January 06, 2025 5: 15pm Chief Complaint Admit Date Cough January 06, 2025 5: 15pm coughing January 07, 2025 9: 12am Reason for Visit Admit Date Cough January 06, 2025 5: 15pm Palpitations January 06, 2025 5: 15pm Shortness of breath January 06, 2025 5: 15pm Bronchitis January 07, 2025 9: 12am Reason for Visit Admit Date Cough January 06, 2025 5: 15pm Palpitations January 06, 2025 5: 15pm Shortness of breath January 06, 2025 5: 15pm Acquired hypothyroidism January 07 9:12am Diego thyroiditis January 07, 2025 9:12am Additional Source Comments INFORMATION SOURCE (unrecogn ized section and content) DATE CREATED AUTHOR 04/29/2020 [facility] DATE CREATED AUTHOR AUTHOR'S ORGANIZ ATION [facility] DATE CREATED AUTHOR AUTHOR'S ORGANIZ ATION 11/16/2023 [facility] DATE CREATED AUTHOR AUTHOR'S ORGANIZ ATION 12/01/2024 [facility] DATE CREATED AUTHOR AUTHOR'S ORGANIZ ATION 12/03/2024 [facility] REASON FOR VISIT (unrecogniz ed section and content) Reason Comments Thyroid Problem ThyC/o headaches in am Reason Comments Thyroid Problem Reason Onset Date Comments Med Refill 12/12/2023 Reason Comments Gynecologic Exam Reason Comments Thyroid Problem Reason Comments Med Refill Care Teams (unrecognized sec tion and content) Systems Qa Analyst Relationship Specialty Start Date End Date Yasmine Ferguson DO PCP - General Family Medicine 11/12/22 Systems Qa Analyst Relationship Specialty Start Date End Date Yasmine Ferguson DO PCP - General Family Medicine 11/12/22 Systems Qa Analyst Relationship Specialty Start Date End Date Yasmine Ferguson DO [address] [facility] [address] [address] [place] [address] PCP - General Family Medicine 11/12/22 Systems Qa Analyst Relationship Specialty Start Date End Date Yasmine Ferguson DO [address] [facility] [address] [place] [address] PCP - General Family Medicine 11/12/22 Systems Qa Analyst Relationship Specialty Start Date End Date Yasmine Ferguson DO [address] [facility] [place] [address] [place] [address] PCP - General Family Medicine 11/12/22 Systems Qa Analyst Relationship Specialty Start Date End Date Yasmine Ferguson DO PCP - General Family Medicine 11/12/22 Systems Qa Analyst Relationship Specialty Start Date End Date Yasmine Ferguson DO PCP - General Family Medicine 11/12/22 Systems Qa Analyst Relationship Specialty Start Date End Date Yasmine Ferguson DO PCP - General Family Medicine 11/12/22 Team Status: Active Member Role Status Dates Yasmine Ferguson DO Primary Care Provider Active Team Status: Inactive Member Role Status Dates Yasmine Ferguson DO Primary Care Provider Active Start: January 06, 2025 End: January 06, 2025 Julieth Hughes APRN Attending Provider Active S tart: January 06, 2025 End: January 06, 2025 Team Status: Inactive Member Role Status Dates Yasmine Ferguson DO Primary Care Provider Active Start: January 07, 2025 End: January 07, 2025 Franki Cuadra APRN Attending Provider Active Start: January 07, 2025 End: January 07, 2025 Goals (unrecognized section and content) Goals may be documented in a n alternate section FOR RECORDS PERTAINING TO PATIENTS WHO ARE OR HAVE BEEN ENROLLED IN A CHEMICAL DEPENDENCY/SUBSTANCEABUSE PROGRAM, SOME INFORMATION MAY BE OMITTED. This clinical summary was aggregated from multiple sources. Caution should be exercised in using it in the provision of clinical care. This summary normalizes information from multiple sources, and as a consequence, information in this document may materially change the coding, format and clinical context of patient data. In addition, data may be omitted in some cases. CLINICAL DECISIONS SHOULD BE BASED ON THE PRIMARY CLINICAL RECORDS. [facility]. provides no warranty or guarantee of the accuracy or completeness of information in this document.
[2025-01-15 19:19] VITALS: BP 163/90; PULSE 91; TEMP 36.6; O2SAT 100; BMI 30.2
--- NOTE | 2025-01-15 19:19 | ECG_ITS ---
[facility] Test Date: 2025-01-15 Pat Name: BROOKE ALTMAN Department: Room: - Gender: Female Crew Member: : 1980 Requested By: [id number] Order Number: [id number] Reading MD: KAVITHA DUMAS M.D. Measurements Intervals [place] Rate: 86 P: 42 NC: 156 QRS: 86 QRSD: 80 T: -17 QT: 378 QTc: 421 Interpretive Statements [address] and T wave abnormality, possible inferior and lateral ischemia 9150 abnormal ECG No previous ECG available for comparison Electronically Signed On 01-15-2025 20:09:04 EDT by KAVITHA DUMAS M.D.
[2025-01-15 19:26] VITALS: PULSE 86
--- NOTE | 2025-01-15 19:38 | XR_ITS ---
The [place] [id number] Patient Name: BROOKE ALTMAN MRN: [id number] date: 1980 Sex: F Assigned Patient Location: ER Current Patient Location: ER Accession/Order Number: [id number] Exam Date: 01/15/2025 19:40 Report Date: 01/15/2025 20:02 At the request of: MICHELLE ALEJANDRO DO Procedure: XR chest 2V PA AND LATERAL CHEST: CLINICAL HISTORY: CP, recent bronchitis COMPARISON: 03/16/2022 FINDINGS: Unremarkable cardiomediastinal mediastinal silhouette. Lungs are clear. No effusion or pneumothorax. XR/XR chest 2V IMPRESSION: NO ACUTE CARDIOPULMONARY ABNORMALITY. Impression dictated by: Jay Landis M.D. 01/15/2025 8:02 PM Dictation Location: [place] [address] Electronically authenticated by: [id number] Y Date: 01/15/2025 20:02
--- NOTE | 2025-01-15 19:47 | ED.GENADUL1 ---
HPI HPI - General Adult General Chief complaint: Chest Pain Stated complaint: CHEST PAINS, HEART RACING Time Seen by Provider: 01/15/25 19:19 Source: patient Mode of arrival: walk-in Limitations: no limitations History of Present Illness HPI narrative: The patient is a 44-year-old female presenting to the emergency department for evaluation of chest pain. Patient states that this morning she woke up with chest pain that she has never experienced prior in her life. She states it is located in the center of her chest and feels like a tight sensation. It does not radiate to her back, arm, or jaw. She states she noticed the pain worsen when she drinks and coffee this morning. She states it feels like her heart is pounding out of her chest and the pain sometimes takes her breath away. It is not associate with exertion. She has no nausea or vomiting when this happens. She has not become diaphoretic. She noted that her heart rate was high on her Apple watch at rest, approximate 120 bpm before self resolving. She was recently diagnosed with bronchitis a couple weeks ago and has had a persistent cough that is significantly improving. She was on prednisone for the last few days. She denies history of DVT/PE. She is on oral estrogen for perimenopausal symptoms. She denies hemoptysis, leg swelling, recent surgeries, recent immobilizations. She denies history of IA or coronary artery disease in her or her family. She has history of thyroidectomy and hysterectomy. She has had no fevers or chills. No abdominal pain. Related Data Home Medications ?Medication ?Instructions ?Recorded ?Confirmed levothyroxine 150 mcg capsule 150 mcg PO DAILY 01/15/25 01/15/25 (Tirosint) phentermine 15 mg-topiramate ER 92 1 cap PO DAILY 01/15/25 01/15/25 mg capsule,ext.[id number] multphas (Qsymia) Allergies Allergy/AdvReac Type Severity Reaction Status Date / Time No Known Drug Allergies Allergy Verified 01/15/25 19:24 Review of Systems ROS Status of ROS 10 or more systems reviewed and unremarkable except as noted in history and below [facility] Social History Little interest or pleasure in doing things: not at all Feeling down, depressed, or hopeless: not at all Exam Narrative Exam Narrative: CONSTITUTIONAL: Well-appearing, answering questions and following commands appropriately SKIN: Was warm and dry. EYES: Sclera white. EARS, NOSE, THROAT: No JVD. RESPIRATORY: Clear to auscultation bilaterally, no wheezes, crackles, or stridor, no use of accessory muscles CARDIOVASCULAR: Normal rate and regular rhythm. There is no S3, S4, murmur, rub. GASTROINTESTINAL: Abdomen was soft, non-tender, and non-distended. There is no guarding or rebound tenderness MUSCULOSKELETAL: There was no lower extremity edema, erythema, or tenderness. NEUROLOGIC: Patient is awake and alert. Facies were symmetrical. Constitutional Vital Signs, click to edit/add: Last Vital Signs Temp 97.8 F 01/15/25 19:19 Pulse 91 H 01/15/25 19:19 Resp 16 01/15/25 19:59 BP 163/90 H 01/15/25 19:19 Pulse Ox 100 01/15/25 19:19 O2 Del Method Room Air 01/15/25 19:19 Course Vital Signs Vital signs: Vital Signs Temperature 97.8 F 01/15/25 19:19 Pulse Rate 91 H 01/15/25 19:19 Respiratory Rate 18 01/15/25 19:19 Blood Pressure 163/90 H 01/15/25 19:19 Pulse Oximetry 100 01/15/25 19:19 Oxygen Delivery Method Room Air 01/15/25 19:19 Temperature 97.8 F 01/15/25 19:19 Pulse Rate 91 H 01/15/25 19:19 Respiratory Rate 16 01/15/25 19:59 Blood Pressure 163/90 H 01/15/25 19:19 Pulse Oximetry 100 01/15/25 19:19 Oxygen Delivery Method Room Air 01/15/25 19:19 Medical Decision Making [facility] Narrative Medical decision making narrative: Patient is a 44-year-old female presenting to the emergency department for evaluation of chest pain x 24 hours. Her vital signs on arrival were significant for hypertension, otherwise were within normal limits. She is afebrile and hemodynamically stable. Patient has a normal physical examination. Differential diagnosis includes ACS, arrhythmia, pneumothorax, coronary vasospasm, musculoskeletal chest pain, chest discomfort from her recent diagnosis of bronchitis/persistent cough, costochondritis. Using the PERC criteria, PE can be essentially ruled out. However, she is on estrogen replacement therapy, therefore a D-dimer was obtained. IV was established laboratory studies were obtained. Bedside ultrasound performed and interpreted by myself was normal. There is no pericardial effusion, normal RV/LV sizes, normal ejection fraction. 12 Lead EKG: Normal sinus rhythm at a rate of 86. Normal axis. No ST segment elevations. There are T wave inversions in the inferolateral leads (II, III, aVf, V4, V5, V6). QRS, OR, and QTc interval within normal limits. No prior EKG for comparison. Final impression: Normal sinus rhythm with T wave inversions in the inferiolateral leads. No evidence of STEMI. Chest x-ray independently reviewed/interpreted by myself demonstrated no acute cardiopulmonary process. Laboratory studies were unremarkable. No significant electrolyte or metabolic derangement. No evidence of acute kidney injury. No anemia or thrombocytopenia. Mild leukocytosis, likely related to recent steroid use. Troponin nonelevated. D-dimer nonelevated. I do believe the patient is stable for discharge. Given the patient's unremarkable cardiac workup, and a HEART score of 3, she is low risk for MACE. They were instructed to follow up with her PCP for further care, and further follow-up for her nonspecific EKG abnormalities. Return precautions were given including any new or worsening symptoms. Patient understands and agrees to the plan. FINAL IMPRESSION: #Acute chest pain DISPOSITION: Discharged home CONDITION: Good Medical Records Medical records reviewed: Yes I reviewed the patient's medical records Lab Data Lab results reviewed: Yes I reviewed the patient's lab results Labs: Lab Results 01/15/25 Range/Units 19:28 WBC 13.4 H (4.0-11.0) 10^3/uL RBC 4.32 (4.20-5.40) 10^6/uL Hgb 13.6 (12.0-16.0) g/dL Hct 39.7 (36.0-48.0) % MCV 91.9 (81.0-99.0) fL MCH 31.5 (26.7-34.0) pg MCHC 34.3 (29.9-35.2) g/dL RDW 13.1 (11.0-15.0) % Plt Count 385 (150-450) 10^3/uL MPV 9.4 L (9.5-13.5) fL D-Dimer 0.26 (<=0.59) mg/L FEU Sodium 138 (136-145) mmol/L Potassium 3.5 (3.5-5.1) mmol/L Chloride 103 (98-107) mmol/L Carbon Dioxide 25.3 (21.0-32.0) mmol/L Anion Gap 13.2 BUN 17.0 (7.0-18.0) mg/dL Creatinine 0.85 (0.55-1.02) mg/dL Est GFR ( Amer) >60 (>=60 mL/min/1.73m^2) Est GFR (Non-Af Amer) >60 (>=60 mL/min/1.73m^2) BUN/Creatinine Ratio 20.0 Glucose 100 (74-106) mg/dL Calcium 8.8 (8.5-10.1) mg/dL Troponin I High Sens <4.0 L (4.0-51.3) pg/mL Imaging Data Chest x-ray: Attestation: I personally reviewed and interpreted this imaging study as follows: Radiologist's impression: ITS Impressions Chest X-Ray 01/15/25 19:38 IMPRESSION: NO ACUTE CARDIOPULMONARY ABNORMALITY. Impression dictated by: Jay Landis M.D. 01/15/2025 8:02 PM Dictation Location: [place] [address] Electronically authenticated by: [id number] Y Date: 01/15/2025 20:02 ECG Data Attestation: I personally reviewed and interpreted this ECG as follows: Discharge Plan Discharge Chief Complaint: Chest Pain Clinical Impression: Chest pain Patient Disposition: Home, Self-Care Time of Disposition Decision: 20:13 Condition: Good Mode of Transportation: Private Vehicle Prescriptions / Home Meds: No Action levothyroxine [Tirosint] 150 mcg capsule 150 mcg PO DAILY phentermine-topiramate [Qsymia] 15-92 mg capsule, ER multiphase 24 hr 1 cap PO DAILY Print Language: Ukrainian Instructions: Chest Pain (ED) Referrals: YASMINE HERNANDEZ [Primary Care Provider] - 1 week
[2025-01-15 19:53] LABS: Hematocrit 39.7 % (36.0-48.0); Hemoglobin 13.6 g/dL (12.0-16.0); Mean Corpuscular HGB Conc 34.3 g/dL (29.9-35.2); Mean Corpuscular Hemoglobin 31.5 pg (26.7-34.0); Mean Corpuscular Volume 91.9 fL (81.0-99.0); Platelet Count 385 10^3/uL (150-450); Red Blood Count 4.32 10^6/uL (4.20-5.40); White Blood Count 13.4 10^3/uL (4.0-11.0)
[2025-01-15 20:08] LABS: Anion Gap 13.2; Blood Urea Nitrogen 17.0 mg/dL (7.0-18.0); Calcium 8.8 mg/dL (8.5-10.1); Carbon Dioxide 25.3 mmol/L (21.0-32.0); Chloride 103 mmol/L (98-107); Estimated GFR (African America >60 (>=60 mL/min/1.73m^2); Estimated GFR (Non-African Ame >60 (>=60 mL/min/1.73m^2); Glucose 100 mg/dL (74-106); Potassium 3.5 mmol/L (3.5-5.1); Sodium 138 mmol/L (136-145)
[2025-01-15 20:45] VITALS: BP 108/70; PULSE 82; O2SAT 98
== END 2025-01-15 20:49 | disposition home or self-care (01) ==
PROVIDERS: Emergency Provider Student in an Organized Health Care Education/Training Program
DX: R07.9 Chest pain, unspecified (principal); Z90.710 Acquired absence of both cervix and uterus; E89.0 Postprocedural hypothyroidism; Z79.890 Hormone replacement therapy
CPT/HCPCS: 36415; 71046; 80048; 84484; 85027; 85378; 93005; 99285